=== PATIENT | male | born 1950 | race Caucasian/White ===

== ENCOUNTER 2024-12-29 03:10 | Emergency (ER) | payer MEDICARE, OTHER, SELFPAY ==
[2024-12-29] VITALS (7 sets, daily range): BP systolic 98–133; BP diastolic 59–67; PULSE 69–80; RESP 14–20; TEMP 36.6; O2SAT 95–100; BMI 27.8
--- NOTE | 2024-12-29 03:15 | CT_ITS ---
PROCEDURE INFORMATION: Exam: CT Head Without Contrast Exam date and time: 12/29/2024 3:40 AM Age: 74 years old Clinical indication: Injury or trauma; Fall; Blunt trauma (contusions or hematomas); With loss of consciousness; Loss of consciousness for 30 minutes or less TECHNIQUE: Imaging protocol: Computed tomography of the head without contrast. Radiation optimization: All CT scans at this facility use at least one of these dose optimization techniques: automated exposure control; mA and/or kV adjustment per patient size (includes targeted exams where dose is matched to clinical indication); or iterative reconstruction. COMPARISON: No relevant prior studies available. FINDINGS: Brain: No hemorrhage. Unremarkable white matter. No mass effect. Cerebral ventricles: No ventriculomegaly. Paranasal sinuses: Visualized sinuses are unremarkable. No fluid levels. Mastoid air cells: Visualized mastoid air cells are well aerated. Bones: Unremarkable. No acute fracture. Soft tissues: Unremarkable. Other findings: Right parieto-occipital lobar region suboptimally visualized and evaluated secondary to significant image degradation from susceptibility artifacts. IMPRESSION: No acute intracranial abnormality in visualized study.
--- NOTE | 2024-12-29 03:15 | XR_ITS ---
PROCEDURE INFORMATION: Exam: XR Right Hip Exam date and time: 12/29/2024 3:30 AM Age: 74 years old Clinical indication: Injury or trauma; Fall; Blunt trauma (contusions or hematomas); Right; Hip; Additional info: Fall hip pain TECHNIQUE: Imaging protocol: Radiologic exam of the right hip. Views: 2 or 3 views hip with pelvis when performed. COMPARISON: No relevant prior studies available. FINDINGS: Bones/joints: Unremarkable. No acute fracture. Soft tissues: Unremarkable. IMPRESSION: No acute findings.
--- NOTE | 2024-12-29 03:15 | HMH.EDGENADL ---
Discharge Plan Disposition Patient Disposition: Home, Self-Care Prescriptions Prescriptions: No Action levothyroxine 100 mcg Tablet 100 mcg PO DAILY duloxetine 30 mg Capsule,Delayed Release(Dr/Ec) 30 mg PO DAILY omeprazole 20 mg Tablet,Delayed Release (Dr/Ec) 20 mg PO BID metformin 500 mg Tablet 500 mg PO BIDWMEAL atorvastatin 80 mg Tablet 80 mg PO HS tamsulosin 0.4 mg Capsule 0.4 mg PO HS empagliflozin 25 mg Tablet 25 mg PO DAILY cetirizine 10 mg Tablet 10 mg PO DAILY Activity Restrictions/Add. Instructions Additional Instructions/Restrictions: Please follow-up with your primary care provider. Please return to the emergency department if you develop any new or worsening symptoms or become concerned for your health. Clinical Impressions Clinical Impression: Concussion, Neck pain, Headache, Fall Instructions Patient Instructions: DI for Syncope in Adults (Fainting), DI for Syncope in Children (Fainting) Print Language Print Language: Sinhala Discharge ED Provider: Leonid Sung Adult HPI General Chief complaint: Syncope Stated complaint: Fall Time Seen by Provider: 12/29/24 03:15 History of Present Illness HPI narrative: 74-year-old male with history of fio-sgjnfuh-hkwdzyuhu diabetes, BPH, hypothyroidism, depression presents for fall. He reports that he has been more dizzy than normal lately, it happens when he stands up and is also worse with moving around. He got checked out for it by his doctor at the [place] and was told that it was not vertigo . His orthostatic vital signs were consistent with orthostasis at that time. Tonight he reports that he took his night medications (not sure what they were) and then smoked some weed which helps him sleep. But he got up and went to the kitchen and fell. He reports that he woke up on the ground and his left arm and right leg were asleep and he had to crawl to his phone. He reports mild headache and had nausea and vomiting in the truck with the EMS crew. Reports some upper neck pain. Denies any chest pain abdominal pain. Reports some hip pain. Denies any current numbness weakness or any other neurologic symptoms. Not currently dizzy. Related Data Home Medications ?Medication ?Instructions ?Recorded ?Confirmed atorvastatin 80 mg tablet 80 mg PO HS 12/29/24 12/29/24 cetirizine 10 mg tablet 10 mg PO DAILY 12/29/24 12/29/24 duloxetine 30 mg capsule,delayed 30 mg PO DAILY 12/29/24 12/29/24 release empagliflozin 25 mg tablet 25 mg PO DAILY 12/29/24 12/29/24 levothyroxine 100 mcg tablet 100 mcg PO DAILY 12/29/24 12/29/24 metformin 500 mg tablet 500 mg PO BIDWMEAL 12/29/24 12/29/24 omeprazole 20 mg tablet,delayed 20 mg PO BID 12/29/24 12/29/24 release tamsulosin 0.4 mg capsule 0.4 mg PO HS 12/29/24 12/29/24 Allergies Allergy/AdvReac Type Severity Reaction Status Date / Time chlorpheniramine AdvReac Unknown Verified 12/29/24 04:28 allergy reaction doxorubicin AdvReac Unknown Verified 12/29/24 04:28 allergy reaction PFSH [facility] Disclaimer: The information contained in this section may have been updated after the patient was seen, as this information can be updated by other users. Social History Smoking Status: Unknown if ever smoked alcohol intake: never current occupational status: previously employed Travel in the last 8 weeks: None ROS Obtained: Yes All systems reviewed & no additional complaints except as documented Physical Exam General General appearance: alert and in no apparent distress Head Head exam: atraumatic and normocephalic Eye Eye exam: Present normal appearance, PERRL and EOMI ENT ENT exam: Present normal oropharynx and normal external ear exam Neck Neck exam: Present normal inspection, full ROM and tenderness (Midline and paraspinal upper neck) Chest Chest inspection: Present normal inspection and symmetric chest wall rise; Absent tenderness Respiratory Respiratory exam: Present normal lung sounds bilaterally; Absent respiratory distress Cardiovascular Cardiovascular exam: Present regular rate and normal rhythm Abdominal Exam Abdominal exam: Present soft; Absent distention, tenderness or guarding Extremities Exam Extremities exam: Present normal inspection and tenderness (Mild, right hip); Absent edema or joint swelling Back Exam Back exam: Present normal inspection; Absent tenderness Neurological Exam Neurological exam: Present alert and oriented X3; Absent motor sensory deficit Psychiatric Psychiatric exam: Present normal affect and normal mood Skin Skin exam: Present warm, dry and normal color Lymphatic Lymphatic Findings: no adenopathy Medical Decision Making Medical Records Medical records reviewed: Yes I reviewed the patient's medical records. Screening: Per USPSTF and CDC recommendations, given the prevalence of disease in our region, it is our hospital?s policy to screen for HIV and viral Hepatitis for all patients aged 18 and over and those with ongoing risk factors. Edil Inquiry Pt receiving controlled substance: No Edil was queried for this patient: No Vital Signs: 12/29/24 03:12 12/29/24 04:00 12/29/24 04:30 Temperature Pulse Rate 76 70 Pulse Rate [Apical] 69 Respiratory Rate 20 14 15 Blood Pressure 118/59 L 123/65 Blood Pressure [Right Arm] 133/67 Blood Pressure Mean [Right Arm] 89 02 Sat by Pulse Oximetry 100 97 95 Oxygen Delivery Method Room Air Room Air Room Air 12/29/24 05:01 12/29/24 05:30 12/29/24 06:48 Temperature Pulse Rate 72 74 80 Pulse Rate [Apical] Respiratory Rate 14 17 16 Blood Pressure 105/63 L 113/64 98/61 L Blood Pressure [Right Arm] Blood Pressure Mean [Right Arm] 02 Sat by Pulse Oximetry 96 96 99 Oxygen Delivery Method Room Air Room Air Room Air 12/29/24 07:49 Temperature 98 F Pulse Rate 78 Pulse Rate [Apical] Respiratory Rate 16 Blood Pressure 101/65 L Blood Pressure [Right Arm] Blood Pressure Mean [Right Arm] 02 Sat by Pulse Oximetry Oxygen Delivery Method Lab Data Lab results reviewed: Yes I reviewed the patient's lab results. Lab Results 12/29/24 03:20: WBC 10.9 H, RBC 5.11, Hgb 15.8, Hct 47.0, MCV 92.0, MCH 30.9, MCHC 33.6, RDW 12.6, Plt Count 204, MPV 9.3, Neut % (Auto) 82.3 H, Lymph % (Auto) 8.1 L, Pi[place] % (Auto) 6.7, Eos % (Auto) 2.1, Baso % (Auto) 0.5, Neut # (Auto) 9.0 H, Lymph # (Auto) 0.9, Pi[place] # (Auto) 0.7, Eos # (Auto) 0.2, Baso # (Auto) 0.1, PT 11.0, INR 0.98, Sodium 136, Potassium 3.8, Chloride 102, Carbon Dioxide 22, Anion Gap 15.8 H, BUN 15, Creatinine 1.00, Estimated Creat Clear 68, Estimated GFR 73, Est GFR ( Amer) 89, Glucose 147 H, Calcium 10.1, Magnesium 2.0, Total Bilirubin 1.0, AST 34, ALT 32, Alkaline Phosphatase 94, Troponin I < 0.01, Total Protein 8.0, Albumin 4.9, Globulin 3.1, Albumin/Globulin Ratio 1.6, TSH 2.90, Thyroxine (T4) 13.9 H 12/29/24 03:20 12/29/24 03:20 Orders (Tests/Meds): ED MEDICATIONS Discontinued Medications Generic Name Dose Route Start Last Admin Trade Name Freq PRN Reason Stop Dose Admin Acetaminophen 1,000 mg 12/29/24 03:15 12/29/24 03:59 Acetaminophen 500mg Tab PO 12/29/24 03:16 1,000 mg ONCE ONE Administration ORDERS Category Date Time Status CT cervical spine wo con Stat Cat Scan 12/29/24 03:[address] head/brain wo con Stat Cat Scan 12/29/24 03:15 Completed CXR --portable [XR chest portable] Stat Exams 12/29/24 03:16 Completed Hip XR right minimum 2 views [XR hip RT 2-3V w/pelvis] Exams 12/29/24 03:15 Completed Stat CBC w/Auto Diff [Complete Blood Count Auto Diff] Stat Lab 12/29/24 03:20 Completed CMP [Comprehensive Metabolic Panel] Stat Lab 12/29/24 03:20 Completed INR [Prothrombin Time INR] Stat Lab 12/29/24 03:20 Completed Magnesium Stat Lab 12/29/24 03:20 Completed T4 (Thyroxine) Stat Lab 12/29/24 03:20 Completed TSH [Thyroid Stimulating Hormone] Stat Lab 12/29/24 03:20 Completed Troponin I Q3H Lab 12/29/24 03:20 Completed Medical Decision Narrative: 74-year-old male with history of edb-unkgces-afoslwktk diabetes, BPH, hypothyroidism, depression presents for fall with positive LOC. History was obtained via interactive discussion with patient, EMS. On arrival, patient is [afebrile, hemodynamically stable, satting appropriately, alert, oriented x4, GCS 15], moving all extremities spontaneously. Full physical exam performed and significant for mild hip tenderness, mild cervical spinal tenderness, otherwise no traumatic findings. Patient has clear lungs bilaterally Differential includes but is not limited to intracranial trauma intrathoracic trauma intra-abdominal trauma spine trauma extremity trauma arrhythmia, diabetic emergency, orthostatic hypotension, intracranial lesion, inner ear lesion,. Patient was given Tylenol for symptomatic management and correction of underlying abnormalities. Workup initiated including CBC CMP TSH T4 troponin INR CT head CT C-spine chest x-ray pelvis x-ray hip x-ray of the right EKG. On re-evaluation, patient [remains afebrile, HD stable.] Laboratory workup independently interpreted by me and significant for no significant leukocytosis, no significant electrolyte derangement, mildly elevated T4, initial troponin negative. Imaging independently interpreted by me and significant for no evidence of intracranial hemorrhage, cervical fracture, pneumothorax rib fracture or pelvic fracture. See radiology read for full review of final results. EKG independently interpreted by me and significant for sinus rhythm, rate of 63, left bundle branch block noted, Sgarbossa negative. Interpreted at 3:16 on 12/29. Orthostatic vital signs were obtained here and do show that patient has orthostasis and was a little unstable. We offered patient transfer to the CT for further assessment but that he has a follow-up scheduled shortly and would prefer to be discharged home and follow-up outpatient. His son is can come get him. Given patient history, exam and workup, patient's presentation most likely represents orthostasis with fall and concussion. Patient was discharged in stable condition with return precautions.. Procedures Risk/Benefits of Procedure(s) Were Explained: Yes Critical Care Critical Care Time Critical Care Time: No
--- NOTE | 2024-12-29 03:16 | ECG_ITS ---
APPROVED REPORT Exam: Resting ECG HR:63 bpm ECG Measurements Heart Rate 63 AXES WA 174 P 9 QRSd 157 QRS 91 QT 447 T -21 QTc 455 Conclusion SINUS RHYTHM BORDERLINE RIGHT AXIS DEVIATION [QRS AXIS > 90] INTRAVENTRICULAR CONDUCTION DELAY [130+ ms QRS DURATION] ABNORMAL ECG UNCONFIRMED REPORT Electronically signed by : NICK SMITH, 12/31/2024 07:01:59
--- NOTE | 2024-12-29 03:16 | CT_ITS ---
PROCEDURE INFORMATION: Exam: CT Cervical Spine Without Contrast Exam date and time: 12/29/2024 3:43 AM Age: 74 years old Clinical indication: Injury or trauma; Fall; Blunt trauma; Additional info: Fall upper neck pain TECHNIQUE: Imaging protocol: Computed tomography of the cervical spine without contrast. Radiation optimization: All CT scans at this facility use at least one of these dose optimization techniques: automated exposure control; mA and/or kV adjustment per patient size (includes targeted exams where dose is matched to clinical indication); or iterative reconstruction. COMPARISON: CT HEAD/BRAIN WO CON 12/29/2024 3:40 AM FINDINGS: Bones: No acute fracture. Normal alignment. Multilevel degenerative disc and joint space changes. Vertebral body heights grossly preserved. Lungs: Apices unremarkable. Soft tissues: Unremarkable. IMPRESSION: No acute findings.
--- NOTE | 2024-12-29 03:16 | XR_ITS ---
PROCEDURE INFORMATION: Exam: XR Chest Exam date and time: 12/29/2024 3:30 AM Age: 74 years old Clinical indication: Injury or trauma; Fall; Blunt trauma (contusions or hematomas) TECHNIQUE: Imaging protocol: Radiologic exam of the chest. Views: 1 view. COMPARISON: No relevant prior studies available. FINDINGS: Tubes, catheters and devices: Akanksha catheter tip projected over atrial caval junction. Lungs: Unremarkable. No consolidation. Pleural spaces: Unremarkable. No pleural effusion. No pneumothorax. Heart/Mediastinum: Unremarkable. No cardiomegaly. Bones/joints: Unremarkable. IMPRESSION: No acute findings.
[2024-12-29 03:26] LABS: Basophils # 0.1 K/mm3 (0-0.2); Basophils % 0.5 % (0.1-2.0); Eosinophils # 0.2 K/mm3 (0.0-0.4); Eosinophils % 2.1 % (0.1-12.0); Hemoglobin 15.8 g/dL (14.1-18.0); Lymphocytes # 0.9 K/mm3 (0.7-4.5); Lymphocytes % 8.1 % (10-50); Mean Corpuscular HGB Conc 33.6 g/dL (31.8-35.4); Mean Corpuscular Hemoglobin 30.9 pg (27.0-31.2); Mean Platelet Volume 9.3 fl (7.4-10.4); Monocytes # 0.7 K/mm3 (0.1-1.0); Monocytes % 6.7 % (1.7-9.3); Neutrophils % 82.3 % (37.0-80.0); Platelet Count 204 K/mm3 (142-424); Red Blood Count 5.11 M/mm3 (4.60-6.20); Red Cell Distribution Width 12.6 % (11.5-17.5); White Blood Count 10.9 K/mm3 (4.8-10.8)
--- NOTE | 2024-12-29 03:33 | PC.NURSE ---
Spoke with [facility] to get medical records. They are needing a medical release form. facility will fax us records back after the medical release.
[2024-12-29 03:35] LABS: Alanine Aminotransferase 32 U/L (12-78); Albumin Level 4.9 g/dl (3.5-5.0); Albumin/Globulin Ratio 1.6 (1.1-1.8); Alkaline Phosphatase 94 U/L (38-126); Anion Gap 15.8 mEq/L (5-15); Aspartate Amino Transferase 34 U/L (17-59); Blood Urea Nitrogen 15 mg/dl (9-20); Calcium 10.1 mg/dl (8.4-10.2); Carbon Dioxide 22 mmol/L (22.0-30.0); Chloride 102 mmol/L (98-107); Creatinine Clearance Estimated 68 mL/min (50-200); Estimated Glomerular Filt Rate 73 ml/min (>60); GFR (African American) 89 ML/MIN (>60); Globulin 3.1 g/dL (1.3-3.2); Glucose 147 mg/dl (74-100); Potassium 3.8 mmoL/L (3.5-5.1); Sodium 136 mmol/L (136-145)
[2024-12-29 03:49] LABS: INR 0.98 (0.9-1.1)
[2024-12-29 03:51] LABS: Troponin I < 0.01 ng/ml (0.00-0.034)
[2024-12-29 03:53] LABS: T4 (Thyroxine) 13.9 ug/dl (5.53-11.0)
[2024-12-29] MEDS: ACETAMINOPHEN 500MG TAB 1000 MG PO (03:59)
--- NOTE | 2024-12-29 05:40 | PC.NURSE ---
Ambulated patient around the nurses station with stand by assist. Patient with yarder puncher socks in place. Patient tolerated well, but preferred to look down at feet when walking. Patient instructed for chin to remain parallel to floor for proper balance. Patient VU. Patient became unsteady while walking, having to grab tighter to TRN when looking down while walking, and turning corners. Patient also became slightly dizzy when when transferring from sitting position to standing. Patient informed by RN per MD that if patient would like to be transferred to [place] for admission for specific issue MD would contact facility. Patient chose for discharge from [facility], and [facility]. Patient calling family at this time for transportation home. MD aware.
== END 2024-12-29 07:50 | disposition home or self-care (01) ==
PROVIDERS: Emergency Medicine; Emergency Provider Student in an Organized Health Care Education/Training Program
DX: S06.0X0A Concussion without loss of consciousness, initial encounter (principal); M54.2 Cervicalgia; R51.9 Headache, unspecified; W19.XXXA Unspecified fall, initial encounter
CPT/HCPCS: 70450; 71045; 72125; 73502; 80053; 83735; 84436; 84443; 84484; 85025; 85610; 93005; 99285